=== PATIENT | female | born 2000 | race African-American/Black ===

== ENCOUNTER 2021-02-27 20:32 | Emergency (ER) | payer MEDICAID ==
[~2021-02-27] VITALS: Ht 172.7 cm; Wt 85.0 kg
[2021-02-27] MEDS ORDERED: ACETAMINOPHEN 325MG TABLET PO ONE (23:00)
[2021-02-27] MEDS ORDERED: IBUPROFEN 800MG TABLET PO ONE (23:00)
[2021-02-27] MEDS ORDERED: AZITHROMYCIN 500 MG in DEXT 5% WATER 250 ML IV ONE (23:30)
[2021-02-27] MEDS ORDERED: SODIUM CHLORIDE 0.9% 1,000 ML IV ONE (23:30)
[2021-02-27] MEDS ORDERED: CEFTRIAXONE 1 G PREMIX 50 ML IV ONE (23:30)
[2021-02-27 23:58] LABS: BASOPHILS % 0.2 % (0.0-2.0); HEMATOCRIT. 38.1 % (36.0-48.0); HEMOGLOBIN. 13.2 g/dL (12.0-16.0); LYMPHOCYTES % 23.6 % (20.0-50.0); MEAN CORPUSCULAR HEMOGLOBIN 32.9 pg (28.0-32.0); MEAN CORPUSCULAR VOLUME 94.7 fL (81.0-99.0); MEAN PLATELET VOLUME 7.8 fl (7.4-10.4); MONOCYTES % 13.5 % (2.0-8.0); NEUTROPHILS % 62.7 % (40.0-76.0); PLATELET 219 x1000/uL (130-400); RED BLOOD CELL COUNT 4.03 mill/uL (4.2-5.4); RED CELL DISTRIBUTION WIDTH 12.6 % (11.6-14.6)
[2021-02-28 00:04] LABS: CHLORIDE 104 mEq/L (98-107)
[2021-02-28] MEDS ORDERED: AZIT250T12 MT (01:08)
[2021-02-28] MEDS ORDERED: ONDA4TAB5 MT (01:08)
[2021-02-28 02:15] VITALS: BP 106/58
== END 2021-02-28 02:49 | disposition home or self-care (01) ==
LOC: ER 20:32
DX: U07.1 COVID-19 (principal); J12.82 Pneumonia due to coronavirus disease 2019; I49.9 Cardiac arrhythmia, unspecified
CPT/HCPCS: 36415; 71045; 80053; 81025; 85025; 87040; 93005; 96365; 96366; 96368; 99285; C9803; J0456; J7030; J7060; U0003; U0005